=== PATIENT | female | born 1975 | race Caucasian/White ===

== ENCOUNTER 2021-01-11 12:19 | Emergency (ER) | payer OTHER, SELFPAY ==
--- NOTE | ~2021-01-11 | XR_ITS ---
EXAMINATION: XR finger 2nd LT min 2V INDICATION: Left second finger pain, initial encounter TECHNIQUE: Four views of the left second finger are obtained. COMPARISON: 04/27/2008 FINDINGS: There is an acute, traumatic, open, oblique fracture at the lateral base of the first dista l phalanx which extends to the distal interphalangeal joint. There is laceration soft tissue swelling surrounding the fracture. No additional acute osseous findings are evident. On the lateral view with out the bandage, there are questionable radiopaque foreign bodies in the soft tissues of the tuft of the second finger. IMPRESSION: 1. Open intra-articular fracture at the lateral base of the second distal phalanx with possible soft tissue foreign bodies. Reviewed, dictated and finalized at location A. IMPRESSION: 1. Open intra-articular fracture at the lateral base of the second distal phala nx with possible soft tissue foreign bodies.
[2021-01-11 12:25] VITALS: BP 154/101; PULSE 103; RESP 18; TEMP 36; O2SAT 100
--- NOTE | 2021-01-11 12:36 | ED.GENADULT ---
HPI - General Adult General Chief complaint: Wound/Laceration Stated complaint: lac to rt hand Time Seen by Provider: 01/11/21 12:25 Source: patient History of Present Illness HPI narrative: Patient is a 45 y/o female complaining left finger laceration. She states that she accidentally cut it with a machine ii trimmer 1 hour ago. She has burning pain. There is no alleviating or exacerbating factor. She denies other injuries. She is not sure when her last Tetanus shot was. Related Data Allergies Allergy/AdvReac Type Severity Reaction Status Date / Time NKFA Allergy Unknown Unknown Uncoded 07/07/20 16:18 Review of Systems Musculoskeletal: Musculoskeletal: Reports as per HPI Integumentary/Breasts: Skin/Breast: Reports as per HPI and Reports other (left finger laceration) [facility] Past Medical History Medical History Hypothyroidism (acquired) Tobacco user Family History Family History Mother Cancer Social History Social History Social History: Single Smoking status: Unknown if ever smoked (pt vapes) Tobacco type: e-cigarettes/vaping Second hand tobacco smoke exposure: Yes Alcohol intake: never Substance use: never Substance use type: does not use Gender identity (if verbalized by the patient): Female Exam Const: General: no acute distress and well developed Orientation/consciousness: oriented to person, oriented to place, oriented to time and patient oriented x3 HENMT: Head: normocephalic Neck: Neck: normal visual inspection and full ROM Resp: Effort & Inspection: normal respiratory effort Auscultation: clear to auscultation bilaterally Skin: General skin exam: normal color and turgor normal Trauma: laceration (left finger tip laceration) Neuro: General: oriented to person, oriented to place, oriented to time and patient oriented x3 Extrem: General: normal to inspection, full ROM and no pedal edema Course Reevaluation(s) Reevaluation #1: Attempted to irrigate wound after applying digital block. Bleeding is difficult to control even with cautery. Date: 01/11/21 Time: 14:45 Consultations Consultation #1: Discussed with Dr. Bravo, who recommends irrigation and leave wound open. He will follow up with patient in 2 days. Date: 01/11/21 Time: 13:21 Consultation #2: Discussed with Dr. Bravo about persistent bleeding. He states that he reviewed Xray and there does not seem to be visible FB. He recommends closing the wound. Date: 01/11/21 Time: 14:49 Vital Signs Vital signs: Vital Signs Temperature 36.0 C L 01/11/21 12:25 Pulse Rate 103 H 01/11/21 12:25 Respiratory Rate 18 01/11/21 12:25 Blood Pressure 154/101 H 01/11/21 12:25 Pulse Oximetry 100 01/11/21 12:25 Temperature 36.0 C L 01/11/21 12:25 Pulse Rate 71 01/11/21 15:30 Respiratory Rate 12 01/11/21 15:30 Blood Pressure 125/78 01/11/21 15:30 Pulse Oximetry 99 01/11/21 15:30 Procedures Laceration Laceration 1: Date: 01/11/21 Time: 15:05 Site: hand Side (If applicable): left (left index finger) Size (cm): 2 Description: stellate Depth: simple, single layer Local Anesthetic: lidocaine 1% Amount of anesthesia used (mL): 5 Pre-repair: wound explored, irrigated extensively and other (cautery applied to bleeders) ====== Skin Level ====== Skin layer closed with: nylon Size (cm): 5-0 Number of sutures: 4 Technique: simple, interrupted ====== Subcutaneous Layer ====== ====== Muscle Layer ====== ====== Tendon Layer ====== Medical Decision Making Vital Signs Vital Signs: Vital Signs Temperature 36.0 C L 01/11/21 12:25 Pulse Rate 103 H 01/11/21 12:25 Respiratory Rate 18 01/11/21 12:25 Blood Pressure 154/101 H 01/11/21 12:25 Pulse Oximetry 100 01/11/21 12:25 Temperature 36.
[2021-01-11] MEDS: TETANUS,DIPHTHERIA,AC PERTUSSIS ADULT (0.5 ML) BOOSTRIX IM (12:40)
[2021-01-11 15:20] VITALS: BP 119/74; PULSE 70; RESP 14; O2SAT 99
[2021-01-11 15:30] VITALS: BP 125/78; PULSE 71; RESP 12; O2SAT 99
[2021-01-11] MEDS: CEPHALEXIN 500 MG CAPSULE PO (15:36)
[2021-01-11] MEDS: HYDROcodone/acetaminophen (*CRX) 5-325 MG TABLET 1 TAB PO (15:37)
== END 2021-01-11 15:50 | disposition home or self-care (01) ==
PROVIDERS: Emergency Provider Emergency Medicine; PCP Family Medicine
DX: S61.211A Laceration without foreign body of left index finger without damage to nail, initial encounter (principal); S62.661A Nondisplaced fracture of distal phalanx of left index finger, initial encounter for closed fracture; Z23 Encounter for immunization; E03.9 Hypothyroidism, unspecified; W29.3XXA Contact with powered garden and outdoor hand tools and machinery, initial encounter
CPT/HCPCS: 12001; 73140; 90471; 90715; 99283; A9270

== ENCOUNTER → 2021-08-06 14:55 | Outpatient (CLI) | payer OTHER, SELFPAY ==
--- NOTE | ~2021-08-06 | MM_ITS ---
EXAMINATION: MM screening [facility] BI w [place] HISTORY: Screening mammogram, family history of breast cancer in her mother. TECHNIQUE: Craniocaudal and mediolateral oblique 3-D tomosynthesis images were obtained and synthetic 2-D images were generated. CAD analysis was submitted and interpreted. COMPARISON: 08/02/2017, 01/21/2014, 01/08/2014 BREAST PARENCHYMAL COMPOSITION: There are scattered areas of fibroglandular density. FINDINGS: RIGHT BREAST: There is focal asymmetry in the anterior third of the inner breast. LEFT BREAST: There is a possible mass in the posterior third outer breast approximately 10 cm from th e nipple. IMPRESSION: 1. Bilateral breast findings as described above. 2. Additional mammographic views and possible breast ultrasound are recommended. BI-RADS Category 0: Incomplete: Needs additional imaging evaluation. Reviewed, dictated and finalized at location A. [employer] IMPRESSION: 1. Bilateral breast findings as described above. 2. Additional mammographic views and possible breast ultrasound are recommended . BI-RADS Category 0: Incomplete: Needs additional imaging evaluation.
== END ==
PROVIDERS: PCP Family Medicine; Visit Provider Family Medicine
DX: Z12.31 Encounter for screening mammogram for malignant neoplasm of breast (principal); R92.8 Other abnormal and inconclusive findings on diagnostic imaging of breast
CPT/HCPCS: 77063; 77067

== ENCOUNTER 2021-08-21 08:00 | Outpatient (CLI) | payer OTHER, SELFPAY ==
--- NOTE | ~2021-08-21 | MMUS_ITS ---
EXAMINATION: MM diagnostic [facility] BI w [place], US breast BI limited HISTORY: Focal asymmetry of the right breast possible left breast mass on screening mammogram TECHNIQUE: Additional 3-D tomosynthesis images of the breasts were performed and synthetic 2-D images were generated. CAD analysis was submitted and interpreted. High resolution limited bilateral breast ultrasound was performed. COMPARISON: 08/06/2021, 08/02/2017, 01/21/2014, 01/08/2014 FINDINGS: MAMMOGRAPHIC FINDINGS: Focal asymmetry of the right breast somewhat disperses with spot compression. No left breast mass is identified with spot compression views. ULTRASOUND: There is no evidence of focal abnormal solid or cystic mass in the vicinity of the mammographic findi ngs in question. There is a 7 mm cyst of the left breast near the nipple. IMPRESSION: 1. No mammographic or sonographic evidence of malignancy. 2. Recommend routine screening mammography in one year. BI-RADS Category 1: Negative Reviewed, dictated and finalized at location A. [employer] IMPRESSION: 1. No mammographic or sonographic evidence of malignancy. 2. Recommend routine screening mammography in one year. BI-RADS Category 1: Negative
== END 2021-08-21 08:01 ==
LOC: MICIMG 08:00
PROVIDERS: PCP Family Medicine; Visit Provider Nurse Practitioner Gerontology
DX: R92.8 Other abnormal and inconclusive findings on diagnostic imaging of breast (principal)
CPT/HCPCS: 76642; 77062; 77066; G0279

== ENCOUNTER 2022-11-24 08:00 | Outpatient (CLI) | payer OTHER, SELFPAY ==
[2022-11-24 20:03] LABS: Basophils Percent Auto 0.6 % (0.2-1.2); Eosinophils Absolute Auto 0.1 K/mm3 (0-0.3); Eosinophils Percent Auto 1.9 % (0-4.4); Hematocrit 44.6 % (37.0-47.0); Hemoglobin 14.2 g/dL (12.0-15.0); Immature Granulocyte Absolute 0.02 K/mm3 (0.00-0.031); Immature Granulocyte Percent A 0.3 % (0-0.5); Lymphocytes Absolute Auto 1.66 K/mm3 (0.9-3.2); Lymphocytes Percent Auto 26.6 % (18.3-44.2); Mean Corpuscular HGB Conc 31.8 g/dl (32-36); Mean Corpuscular Hemoglobin 28.3 pg (26-34); Mean Corpuscular Volume 88.8 fl (80-100); Mean Platelet Volume 10.7 fl (7.4-10.4); Monocytes Absolute Auto 0.5 K/mm3 (0.1-0.6); Monocytes Percent Auto 7.5 % (2.6-8.5); Neutrophils Absolute Auto 3.9 K/mm3 (1.3-6.7); Neutrophils Percent Auto 63.1 % (45.5-73.1); Platelet Count Result 254 k/mm3 (150-375); Red Blood Count 5.02 M/mm3 (4.2-5.4); Red Cell Distribution Width 13.4 % (11.5-14.5); White Blood Count 6.2 K/mm3 (4.5-10.0)
[2022-11-24 21:05] LABS: Alanine Aminotransferase 21 U/L (6-35); Albumin Level 4.1 g/dL (3.5-5.1); Alkaline Phosphatase 78 U/L (38-126); Anion Gap 7 mmol/L (8-16); Aspartate Amino Transferase 34 U/L (14-36); Bilirubin,Total 0.6 mg/dL (0.2-1.3); Blood Urea Nitrogen 14 mg/dL (7-17); Calcium 8.6 mg/dL (8.4-10.2); Carbon Dioxide 30 mmol/L (22-30); Chloride 103 mmol/L (98-107); Cholesterol 171 mg/dL (0-200); Estimated Glomerular Filt Rate > 60; Glucose 67 mg/dL (65-110); HDL Direct 38 mg/dL; Potassium 4.5 mmol/L (3.4-5.0); Sodium 140 mmol/L (137-145); Triglycerides 122 mg/dL (<150)
[2022-11-24 21:17] LABS: LDL Cholesterol Direct 115 mg/dL
== END 2022-11-24 08:01 | disposition home or self-care (01) ==
LOC: ANHGOSHLAB 08:03
PROVIDERS: PCP Family Medicine; Visit Provider Physician Assistant
DX: R73.09 Other abnormal glucose (principal); E03.9 Hypothyroidism, unspecified; Z72.0 Tobacco use
CPT/HCPCS: 36415; 80053; 80061; 84443; 85025

== ENCOUNTER 2023-04-29 00:24 | Day surgery (SDC) | payer OTHER, SELFPAY ==
[2023-03-02 13:00] VITALS: BMI 42.5
[2023-04-22 12:42] VITALS: BMI 42.5
[2023-04-29 08:32] VITALS: BP 123/84; PULSE 90; RESP 18; TEMP 36.2; O2SAT 99; BMI 42.3
[2023-04-29] MEDS: LACTATED RINGERS 1,000 ML 150 ML IV CONT (08:41)
--- NOTE | 2023-04-29 08:42 | PM.HPGS ---
History of Present Illness History of Present Illness Consent: Risks, benefits, and alternatives have been discussed and questions answered. Patient agrees to proceed with procedure. Chief complaint: neoplasm screening Narrative: Alina Carlos is a 47 year old female Presents for screening colonoscopy. Patient's current weight appetite bowel movements are normal. Patient denies any pain. She has had no bleeding. Family history noncontributory. Review of Systems Review of Systems: Review of systems noncontributory. [facility] Past Medical History Medical History Body mass index (BMI) greater than or equal to 40 in adult (07/01/17) Breast screening Dietary counseling and surveillance (07/01/17) Hypothyroidism (acquired) Hypothyroidism, unspecified Lipid screening Nicotine dependence, unspecified, uncomplicated Tobacco user Family History Family History Mother Cancer Social History Social History (Updated 04/08/23 @ 15:07 by Alicia Gupta) Social History: Single Years smoked: 5 Smoking status: Former smoker Tobacco type: e-cigarettes/vaping Second hand tobacco smoke exposure: Yes Alcohol intake: current Alcohol use details: 1 drink monthly Substance use: never Substance use type: does not use Lack of Transportation: No Lack of Food: Never True Current Housing: I Have Housing Concerned About Future Housing: No Difficulty Paying Gas/Electric Bills: No Difficulty Paying for Meds: No Currently Unemployed: No Education: Master's Degree or Higher Difficulty w/ Childcare or Family Care: No Living arrangements: with family Occupation/Education: occupation 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 Gender identity (if verbalized by the patient): Female Sexual Orientation (if Verbalized by the Patient): Straight or Heterosexual Spiritual care concerns: No Meds Home Medications and Allergies Home Medications Medication Instructions Recorded Confirmed Type chlorthalidone 25 mg tablet 25 mg PO DAILY PRN Edema #90 tabs 04/08/23 04/22/23 Rx irbesartan 75 mg tablet 75 mg PO DAILY #90 tabs 04/08/23 04/22/23 Rx levothyroxine 175 mcg tablet 175 mcg PO QAM #100 tabs 04/08/23 04/22/23 Rx Allergies Allergy/AdvReac Type Severity Reaction Status Date / Time No Known Allergies Allergy Verified 04/29/23 08:30 Vital Signs Vital Signs - 24 hr 04/29/23 08:32 Temperature 97.1 F L Pulse Rate 90 Respiratory Rate 18 Blood Pressure 123/84 Pulse Oximetry 99 Oxygen Delivery Room Air Exam Narrative: Physical exam reveals patient to be alert. Vital signs stable. HEENT exam is unremarkable. Patient is anicteric. Lungs are clear to auscultation and percussion. Heart is without murmur or extra sounds. Abdominal exam bowel sounds are present soft nontender with no organomegaly. Digital external rectal exam normal. Assessment and Plan Assessment and plan (1) Colon cancer screening: Code(s): Z12.11 - Encounter for screening for malignant neoplasm of colon Status: Acute Assessment and Plan: Patient presents for screening colonoscopy. She appears to be at average risk for colon polyps.
--- NOTE | 2023-04-29 09:07 | WPDANESEPPF ---
Anes - Initial Pre Proc Eval Procedure: Operation Date: 04/29/23 09:30 Proposed Procedures p Screening Colonoscopy - Lior King MD Date/Time: 04/29/23 09:07 Surgeon: Lior King MD Pre Op Diagnosis: neoplasm screening Patient Data Age: 47 Gender: F Height: 1.65 m Weight: 115.3 kg Last Vital Signs Temp 97.1 F L 04/29/23 08:32 Pulse 90 04/29/23 08:32 Resp 18 04/29/23 08:32 BP 123/84 04/29/23 08:32 Pulse Ox 99 04/29/23 08:32 O2 Del Method Room Air 04/29/23 08:32 Allergies Allergy/AdvReac Type Severity Reaction Status Date / Time No Known Allergies Allergy Verified 04/29/23 08:30 Home Medications Medication Instructions Recorded Confirmed Type chlorthalidone 25 mg tablet 25 mg PO DAILY PRN Edema #90 tabs 04/08/23 04/22/23 Rx irbesartan 75 mg tablet 75 mg PO DAILY #90 tabs 04/08/23 04/22/23 Rx levothyroxine 175 mcg tablet 175 mcg PO QAM #100 tabs 04/08/23 04/22/23 Rx Patient hx anesthesia problems: none Family hx anesthesia problems: none Results Review: All pre-operative results and documents have been reviewed as part of the pre-operative evaluation. [facility] Past Medical History Medical History Body mass index (BMI) greater than or equal to 40 in adult (07/01/17) Breast screening Dietary counseling and surveillance (07/01/17) Hypothyroidism (acquired) Hypothyroidism, unspecified Lipid screening Nicotine dependence, unspecified, uncomplicated Tobacco user Family History Family History Mother Cancer Social History Social History (Updated 04/08/23 @ 15:07 by Alicia Gupta) Social History: Single Years smoked: 5 Smoking status: Former smoker Tobacco type: e-cigarettes/vaping Second hand tobacco smoke exposure: Yes Alcohol intake: current Alcohol use details: 1 drink monthly Substance use: never Substance use type: does not use Lack of Transportation: No Lack of Food: Never True Current Housing: I Have Housing Concerned About Future Housing: No Difficulty Paying Gas/Electric Bills: No Difficulty Paying for Meds: No Currently Unemployed: No Education: Master's Degree or Higher Difficulty w/ Childcare or Family Care: No Living arrangements: with family Occupation/Education: occupation 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 Gender identity (if verbalized by the patient): Female Sexual Orientation (if Verbalized by the Patient): Straight or Heterosexual Spiritual care concerns: No Anes - Eval Final PreProcedure Day of Procedure 04/29/23 09:07 Patient weight: morbidly obese Heart: regular rate and rhythm Lungs: clear to auscultation Airway: Mallampati scale class III Neurological: alert and oriented Last oral intake: >/= 8 hours ASA classification: III Emergent: no Anesthetic plan: proceed Anesthesia type and monitoring: general GIVS and standard monitoring Results Review: All pre-operative results and documents have been reviewed as part of the pre-operative evaluation. Informed Consent: The patient's anesthetic plan and its attendant risks and benefits were discussed with the patient/family/POA. Questions were solicited and answers provided to the satisfaction of the patient/family/POA.
[2023-04-29] MEDS: SIMETHICONE ORAL SUSPENSION 20 MG/0.3 ML 30 ML BOTTLE 0.6 ML IRRIGATION (09:32)
[2023-04-29 09:39] VITALS: BP 111/64; PULSE 79; RESP 20; O2SAT 100
[2023-04-29 09:49] VITALS: BP 123/99; PULSE 80; RESP 20; O2SAT 100
[2023-04-29 09:59] VITALS: BP 127/82; PULSE 73; RESP 20; O2SAT 100
== END 2023-04-29 10:11 | disposition home or self-care (01) ==
PROVIDERS: PCP Family Medicine; Visit Provider Internal Medicine Gastroenterology
PROC: 0DJD8ZZ Inspection of Lower Intestinal Tract, Via Natural or Artificial Opening Endoscopic (ICD-10-PCS; CPT 45378; principal; 2023-04-29 09:30)
DX: Z12.11 Encounter for screening for malignant neoplasm of colon (principal); D17.5 Benign lipomatous neoplasm of intra-abdominal organs; K64.8 Other hemorrhoids; E03.9 Hypothyroidism, unspecified; Z87.891 Personal history of nicotine dependence; E66.01 Morbid (severe) obesity due to excess calories; Z68.41 Body mass index [BMI] 40.0-44.9, adult
CPT/HCPCS: 45385; 88305; J2704; J7120

== ENCOUNTER 2023-07-20 08:10 | Outpatient (CLI) | payer OTHER, SELFPAY ==
[2023-07-20 19:20] LABS: Total Triiodothyronine (T3) 0.97 NG/ML (0.97-1.69)
[2023-07-20 20:08] LABS: Free T4 Free Thyroxine Reflex 1.13 ng/dL (0.78-2.19)
== END 2023-07-20 08:11 | disposition home or self-care (01) ==
LOC: ANHGOSHLAB 08:12
PROVIDERS: PCP Family Medicine; Visit Provider Family Medicine
DX: E03.9 Hypothyroidism, unspecified (principal); R73.09 Other abnormal glucose; Z72.0 Tobacco use
CPT/HCPCS: 36415; 84439; 84443; 84480

== ENCOUNTER → 2023-09-09 15:57 | Outpatient (CLI) | payer OTHER, SELFPAY ==
--- NOTE | ~2023-09-09 | MM_ITS ---
EXAMINATION: MM screening [place] BI w [place] HISTORY: Screening mammogram TECHNIQUE: Craniocaudal and mediolateral oblique 3-D tomosynthesis images were obtained and synthetic 2-D images were generated. CAD analysis was submitted and interpreted. COMPARISON: August 21, 2021 diagnostic bilateral mammogram and Limited bilateral breast ultrasound examination August 06, 2021, August 02, 2017 bilateral screening mammogram examinations BREAST PARENCHYMAL COMPOSITION: There are scattered areas of fibroglandular density. FINDINGS: There is no evidence of suspicious mass, calcification, or architectural distortion to sugg est malignancy in either breast. There has been no suspicious interval change. IMPRESSION: 1. No mammographic evidence of malignancy. 2. Recommend routine screening mammography in one year. BI-RADS Category 1: Negative Reviewed, dictated and finalized at location A. CAREGIVER
== END ==
PROVIDERS: PCP Family Medicine; Visit Provider Family Medicine
DX: Z12.31 Encounter for screening mammogram for malignant neoplasm of breast (principal)
CPT/HCPCS: 77063; 77067

== ENCOUNTER 2023-09-28 17:27 | Outpatient (CLI) | payer OTHER, SELFPAY ==
[2023-09-28 18:49] LABS: Free T4 Free Thyroxine 1.54 ng/mL (0.78-2.19)
[2023-09-30 12:30] LABS: Thyroid Stimulating Hormone 0.131 uIU/mL (0.465-4.680); Total Triiodothyronine (T3) 1.78 NG/ML (0.97-1.69)
== END 2023-09-28 17:28 | disposition home or self-care (01) ==
LOC: ANHLAB 17:28
PROVIDERS: PCP Family Medicine; Visit Provider Family Medicine
DX: E03.9 Hypothyroidism, unspecified (principal)
CPT/HCPCS: 36415; 84439; 84443; 84480

== ENCOUNTER 2023-12-16 17:00 | Emergency (ER) | payer OTHER, SELFPAY ==
[2023-12-16 17:09] VITALS: BP 119/76; PULSE 92; RESP 16; O2SAT 100
--- NOTE | 2023-12-16 17:42 | ED.EAR ---
HPI - Ear Problem General Chief complaint: Ear Stated complaint: EARACHE Time Seen by Provider: 12/16/23 17:38 Source: patient and RN notes reviewed Mode of arrival: ambulatory Limitations: no limitations History of Present Illness HPI Narrative: Patient presents today complaining of a 7-10 day history of right ear fullness, with a 2 day history of pain. She also reports some mild rhinorrhea. Denies congestion, cough, fever. Currently rates her pain 3/10 and has been taking ibuprofen with some relief. No recent antibiotic use. Related Data Allergies Allergy/AdvReac Type Severity Reaction Status Date / Time No Known Allergies Allergy Verified 12/16/23 17:11 Review of Systems Review of Systems: CONSTITUTIONAL: Denies body aches, fever, chills, or sweats. EYES: Denies visual changes, redness, or discharge. ENT: Denies congestion, sore throat. + right ear pain and fullness, rhinorrhea CARDIOVASCULAR: Denies chest pain, palpitations, or edema. RESPIRATORY: Denies cough or dyspnea. GASTROINTESTINAL: Denies abdominal pain, nausea, vomiting, or diarrhea. GENITOURINARY: Denies dysuria or hematuria. SKIN: Denies rash, itching, or wounds. MUSCULOSKELETAL: Denies back pain, joint pain, or myalgia. NEUROLOGIC: Denies headache, numbness, tingling, or weakness. PSYCH: Denies depression or anxiety. [facility] Past Medical History Medical History Body mass index (BMI) greater than or equal to 40 in adult (07/01/17) Breast screening Dietary counseling and surveillance (07/01/17) Hypothyroidism (acquired) Hypothyroidism, unspecified Lipid screening Nicotine dependence, unspecified, uncomplicated Tobacco user Surgical History Surgical History S/P colonoscopy with polypectomy Family History Family History Mother Cancer Social History Social History Social History: Single Years smoked: 5 Smoking status: Former smoker Tobacco type: e-cigarettes/vaping Second hand tobacco smoke exposure: Yes Alcohol intake: current Alcohol use details: 1 drink monthly Substance use: never Substance use type: does not use Lack of Transportation: No Lack of Food: Never True Current Housing: I Have Housing Concerned About Future Housing: No Difficulty Paying Gas/Electric Bills: No Difficulty Paying for Meds: No Currently Unemployed: No Education: Master's Degree or Higher Difficulty w/ Childcare or Family Care: No Living arrangements: with family Occupation/Education: occupation 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 HEAD: Normocephalic, atraumatic. EYES: EOMI. No redness or drainage. Conjunctivae normal. ENT: Mucous membranes pink and moist. Nares clear. No rhinorrhea. Left TM normal. Right TM erythematous and bulging. Throat normal. Uvula midline. NECK: Normal AROM. CHEST: No respiratory distress. EXTREMITIES: Normal range of motion. No edema. SKIN: Warm, dry, no rash. Capillary refill normal. Normal skin turgor. NEURO: No focal deficits. Alert and oriented x3. Gait steady. PSYCH: Normal affect. No signs of depression or anxiety. Course Course Level of Care: Express Care Visit Vital Signs Vital signs: Vital Signs Pulse Rate 92 12/16/23 17:09 Respiratory Rate 16 12/16/23 17:09 Blood Pressure 119/76 12/16/23 17:09 Pulse Oximetry 100 12/16/23 17:09 Oxygen Delivery Room Air 12/16/23 17:09 Pulse Rate 92 12/16/23 17:09 Respiratory Rate 16 12/16/23 17:09 Blood Pressure 119/76
== END 2023-12-16 17:59 | disposition home or self-care (01) ==
PROVIDERS: Emergency Provider Nurse Practitioner; PCP Family Medicine
DX: H66.001 Acute suppurative otitis media without spontaneous rupture of ear drum, right ear (principal); F17.290 Nicotine dependence, other tobacco product, uncomplicated; E03.9 Hypothyroidism, unspecified
CPT/HCPCS: 99213; G0463

== ENCOUNTER 2024-04-09 08:07 | Outpatient (CLI) | payer OTHER, SELFPAY ==
[2024-04-09 13:37] LABS: Alanine Aminotransferase 18 U/L (6-35); Albumin Level 4.1 g/dL (3.5-5.1); Alkaline Phosphatase 57 U/L (38-126); Anion Gap 6 mmol/L (4-12); Aspartate Amino Transferase 51 U/L (14-36); Blood Urea Nitrogen 19 mg/dL (7-17); Calcium 9.1 mg/dL (8.4-10.2); Carbon Dioxide 28 mmol/L (22-30); Chloride 103 mmol/L (98-107); Estimated Glomerular Filt Rate > 60; Glucose 70 mg/dL (65-110); Potassium 4.5 mmol/L (3.4-5.0); Sodium 137 mmol/L (137-145)
[2024-04-09 14:07] LABS: Thyroid Stimulating Hormone 0.579 uIU/mL (0.465-4.680)
[2024-04-09 14:18] LABS: Free T4 Free Thyroxine 2.15 ng/mL (0.78-2.19)
== END 2024-04-09 08:08 | disposition home or self-care (01) ==
PROVIDERS: PCP Family Medicine; Visit Provider Family Medicine
DX: E03.9 Hypothyroidism, unspecified (principal); I10 Essential (primary) hypertension
CPT/HCPCS: 36415; 80053; 84439; 84443

== ENCOUNTER 2024-09-14 14:23 | Outpatient (CLI) | payer OTHER, SELFPAY ==
[2024-09-14 17:41] LABS: Basophils Percent Auto 0.6 % (0.2-1.2); Eosinophils Absolute Auto 0.1 K/mm3 (0-0.3); Eosinophils Percent Auto 1.4 % (0-4.4); Hematocrit 41.3 % (37.0-47.0); Hemoglobin 13.9 g/dL (12.0-15.0); Immature Granulocyte Absolute 0.02 K/mm3 (0.00-0.031); Immature Granulocyte Percent A 0.3 % (0-0.5); Lymphocytes Absolute Auto 2.07 K/mm3 (0.9-3.2); Lymphocytes Percent Auto 29.3 % (18.3-44.2); Mean Corpuscular HGB Conc 33.7 g/dl (32-36); Mean Corpuscular Hemoglobin 29.2 pg (26-34); Mean Corpuscular Volume 86.8 fl (80-100); Mean Platelet Volume 11.2 fl (7.4-10.4); Monocytes Absolute Auto 0.4 K/mm3 (0.1-0.6); Monocytes Percent Auto 5.9 % (2.6-8.5); Neutrophils Absolute Auto 4.4 K/mm3 (1.3-6.7); Neutrophils Percent Auto 62.5 % (45.5-73.1); Platelet Count Result 237 k/mm3 (150-375); Red Blood Count 4.76 M/mm3 (4.2-5.4); Red Cell Distribution Width 12.5 % (11.5-14.5); White Blood Count 7.1 K/mm3 (4.5-10.0)
[2024-09-14 18:01] LABS: Alanine Aminotransferase 18 U/L (6-35); Albumin Level 3.9 g/dL (3.5-5.1); Alkaline Phosphatase 70 U/L (38-126); Anion Gap 7 mmol/L (4-12); Aspartate Amino Transferase 38 U/L (14-36); Bilirubin,Total 0.7 mg/dL (0.2-1.3); Blood Urea Nitrogen 18 mg/dL (7-17); Calcium 8.7 mg/dL (8.4-10.2); Carbon Dioxide 28 mmol/L (22-30); Chloride 103 mmol/L (98-107); Cholesterol 129 mg/dL (0-200); Estimated Glomerular Filt Rate > 60; Glucose 90 mg/dL (65-110); HDL Direct 36 mg/dL; Potassium 3.6 mmol/L (3.4-5.0); Sodium 138 mmol/L (137-145); Triglycerides 72 mg/dL (<150)
[2024-09-14 18:12] LABS: LDL Cholesterol Direct 79 mg/dL
[2024-09-14 18:26] LABS: Thyroid Stimulating Hormone 0.291 uIU/mL (0.465-4.680); Total Triiodothyronine (T3) 0.94 NG/ML (0.97-1.69)
== END 2024-09-14 14:24 | disposition home or self-care (01) ==
LOC: ANHGOSHLAB 14:26
PROVIDERS: PCP Family Medicine; Visit Provider Family Medicine
DX: E03.9 Hypothyroidism, unspecified (principal); I10 Essential (primary) hypertension
CPT/HCPCS: 36415; 80053; 80061; 84439; 84443; 84480; 85025

== ENCOUNTER 2024-12-21 16:50 | Outpatient (CLI) | payer OTHER, SELFPAY ==
[2024-12-21 17:58] LABS: Free T4 Free Thyroxine 2.11 ng/dL (0.78-2.19)
[2024-12-23 06:23] LABS: T3 Free 2.7 pg/mL (2.3-4.2)
== END 2024-12-21 16:51 | disposition home or self-care (01) ==
LOC: ANHLAB 16:51
PROVIDERS: PCP Family Medicine; Visit Provider Student in an Organized Health Care Education/Training Program
DX: E03.9 Hypothyroidism, unspecified (principal); R74.01 Elevation of levels of liver transaminase levels
CPT/HCPCS: 36415; 84439; 84443; 84480

== ENCOUNTER 2025-06-24 12:51 | Outpatient (CLI) | payer OTHER, SELFPAY ==
--- NOTE | ~2025-06-24 | MM_ITS ---
EXAMINATION: screening [facility] BI w [place] INDICATION: Asymptomatic, referred for screening mammogram COMPARISON: 09/09/2023 through 01/08/2014 TECHNIQUE: Digital Breast Tomosynthesis CC, MLO views of Both breasts were obtained with computer-aided detection to assist in interpretation of the study. FINDINGS: The breasts are extremely dense, which lowers the sensitivity of mammography. There are 2 groups of calcifications seen in the superior lateral left breast and additional group of calcifications seen in the medial central left breast. Elsewhere, there are no mammographic features of malignancy. IMPRESSION: 1. Left breast multiple groups of incompletely characterized calcifications. 2. No evidence of malignancy in the Right breast. RECOMMENDATION: Left breast Diagnostic mammogram with true lateral, and appropriate magnification views. BI-RADS Category 0: Incomplete: Needs additional imaging evaluation. Reviewed, dictated and finalized at location A. ALLER IMPRESSION: 1. Left breast multiple groups of incompletely characterized calcifications. 2. No evidence of malignancy in the Right breast. RECOMMENDATION: Left breast Diagnostic mammogram with true lateral, and appropriate magnificati on views. BI-RADS Category 0: Incomplete: Needs additional imaging evaluation.
== END 2025-06-24 12:52 | disposition home or self-care (01) ==
LOC: MICIMG 12:52
PROVIDERS: PCP Family Medicine; Visit Provider Student in an Organized Health Care Education/Training Program
DX: Z12.31 Encounter for screening mammogram for malignant neoplasm of breast (principal); R92.8 Other abnormal and inconclusive findings on diagnostic imaging of breast
CPT/HCPCS: 77063; 77067